=== PATIENT | female | born 1995 | race African-American/Black ===

== ENCOUNTER 2023-12-26 03:21 | Emergency (ER) | payer MEDICAID ==
[~2023-12-26] VITALS: Ht 157.5 cm; Wt 115.4 kg
[2023-12-26] MEDS: cefTRIAXone SOD 1,000 MG VL IM ONE (06:52)
[2023-12-26] MEDS: methylPREDNISolone SOD SUCC 125 MG/2 ML VL IM ONE (06:53)
[2023-12-26] MEDS ORDERED: AUG875T PO (06:55)
[2023-12-26] MEDS ORDERED: IBUP-1456 PO (06:55)
[2023-12-26 07:02] VITALS: BP 129/78; PULSE 87; RESP 20; TEMP 98; O2SAT 98
== END 2023-12-26 07:21 | disposition home or self-care (01) ==
LOC: ER 03:21
DX: J03.90 Acute tonsillitis, unspecified (principal); H66.91 Otitis media, unspecified, right ear; Z79.899 Other long term (current) drug therapy
CPT/HCPCS: 96372; 99284; J0696; J2919